=== PATIENT | female | born 1980 | race African-American/Black ===

== ENCOUNTER 2020-08-11 11:15 | Inpatient (IN) | payer OTHER ==
[2020-08-11] MEDS: ELECTROLYTE-148 SOLN 1,000 ML IV SCH (12:20)
--- NOTE | 2020-08-11 12:20 | HP ---
Past Medical History - Primary Care Physician PCP:: Kwame Parra - Admission Chief Complaint: labor pain and leaking fluid History of Present Illness: Patient presented to the hospital following evaluation at [facility]. She was found to be 3-4 cm dilated and incidental rupture of membranes occurred History Source: Patient Limitations to Obtaining History: No Limitations - Past Medical History LUMP ROLLER: No: Alzheimer's, CVA, Dementia, Migraine, Multiple Sclerosis, Peripheral Neuropathy, Parkinson's, Seizure, Syncope, TIA, Vertigo, Other Cardiovascular: No: AFIB, Aneurysm, Aortic Insufficiency, Aortic Stenosis, CAD, CHF, Deep Vein Thrombosis, HTN, Hyperlipdemia, MD, Mitral Insufficiency, Mitral Stenosis, Murmur, Pulmonary Hypertension, Other Pulmonary: No: Asthma, Bronchitis, Cancer, COPD, O2 Dependent, Pneumonia, Previously Intubated, Pulmonary Embolus, Pulmonary Fibrosis, Sleep Apnea, Other Gastrointestinal: No: Ascites, Cancer, Constipation, Crohn's Disease, Diverticulitis, Diverticulosis, Esophageal Varices, Gastritis, GERD, GI Bleed, Hemorrhoids, Hiatal Hernia, Inflamatory Bowel Disease, Irritable Bowel Disease, Pancreatitis, Peptic Ulcer Disease, Ulcerative Colitis, Other Hepatobiliary: No: Cirrhosis, Cholelithiasis, Cholecystitis, Choledoch olithiasis, Hepatitis A, Hepatitis B, Hepatitis C, Other Renal/: No: Renal Failure, Renal Inusuff, BPH, Cancer, Hematuria, Hemodialysis, Neurogenic Bladder, Renal Calculi, UTI, Other Reproductive: No: Ectopic , Endometriosis, Fibroids, PID, Polycystic Ovary Syndrome, Postmenopausal, Other Heme/Onc: No: Anemia, B12 Deficiency, Bleeding Disorder, Cancer, Current Chemotherapy, Current Radiation Therapy, Hemochromatosis, Hypercoaguable State, Myeloproliferative Synd, Sickle Cell Disease, Sickle Cell Trait, Thromb ocytopenia, Other Infectious Disease: No: AIDS, C-Diff, Herpes Zoster, HIV, MRSA, STD's, Tuberculosis, VREF, Other Psych: No: Addictions, Anxiety, Bipolar, Depression, Panic, Psychosis, Schizophrenia, Other Musculoskeletal: No: Bursitis, Chronic low back pain, Hemiparesis, Hemiplegia, Osteoarthritis, Paraplegia, Other Rheumatology: No: Fibromyalgia, Gout, Lupus, Rheumatoid Arthritis, Sarcoidosis, Vasculitis, Other ENT: No: Allergic Rhinitis, Sinusitis, Other Endocrine: No: Humberto's Disease, Kinards's Disease, Diabetes Insipidus, Diabetes Mellitus, Hyperparathyroidism, Hyperthyroidism, Hypothyroidism, Osteopenia, SIADH, Other Dermatology: No: Basal Cell, Cellulitis, Eczema, Melanoma, Psoriasis, Squamous Cell, Other - Past Surgical History Past Surgical History: Yes: None Hx Myomectomy: No Hx Transabdominal Cerclage: No - Smoking History Smoking history: Never smoked Have you smoked in the past 12 months: No - Alcohol/Substance Use Hx Alcohol Use: No History of Substance Use: reports: None - Social History History of Recent Travel: No Home Medications - Allergies Allergies/Adverse Reactions: Allergies Allergy/AdvReac Type Severity Reaction Status Date / Time No Known Allergies Allergy Verified 08/10/20 12:54 - Home Medications Home Medications: Ambulatory Orders Vitamins (Sjr) - 1 tab PO DAILY 08/10/20 Family Medical History Family History: Unremarkable Review of Systems Findings/Remarks: labor pain has improved slightly since she was transferred from [facility]. She continuous to feel leaking of fluid per vagina - Review of Systems Constitutional: reports: No Symptoms Eyes: reports: No Symptoms HENT: reports: No Symptoms Neck: reports: No Symptoms Cardiovascular: reports: No Symptoms Respiratory: reports: No Symptoms Gastrointestinal: reports: No Symptoms Genitourinary: reports: No Symptoms Breasts: reports: No Symptoms Reported Musculoskeletal: reports: No Symptoms Integumentary: reports: No Symptoms Neurological: reports: No Symptoms Endocrine: reports: No Symptoms Hematology/Lymphatic: reports: No Symptoms Psychiatric: reports: No Symptoms Physical Exam - Maternity Vital Signs: WNL as reported by nursing Constitutional: Yes: No Distress Eyes: Yes: WNL HENT: Yes: Atraumatic Neck: Yes: Supple Cardiovascular: Yes: Regular Rate and Rhythm Lungs: Other Breast(s): Yes: Other - Abdominal Exam/OB Number of Fetuses: Single Presentation: Vertex Contractions: Yes Regularity: Irregular Intensity: Mild/Mod Monitor Mode: External Heart Rate (range): 140 Category: I (moderate variability with episodic variables) Accelerations: None Decelerations: Variable - Vaginal Exam/OB Vaginal Bleeding: No Speculum Exam: No (grossly ruptured with mild blood) Dilatation (cm): 4 Effacement (%): 80 Amniotic Membrane Status: Ruptured Amniotic Fluid: Yes: Blood Stained (light) Presentation: Vertex/Position Station: -3 - Physical Exam Musculoskeletal: Yes: WNL Extremities: Yes: WNL Edema: Yes Edema: LLE: Trace, RLE: Trace Integumentary: Yes: WNL Deep Tendon Reflex Grade: Normal +2 ...Motor Strength: WNL Psychiatric: Yes: Alert, Oriented Imaging - Results Ultrasound: Report Reviewed Assessment/Plan 39 y/o @ 38.5wks, SROM in early labor, reassuring status, stable maternal condition. Patient desires no pain control at this time. She was counseled regarding admission to L&D and informed consent obtained. -Expectant management -Consider pitocin augmentation as required
[2020-08-11 12:27] LABS: BASO % 0.2 % (0-2.0); EOS % 0.1 % (0-4.5); HEMATOCRIT 35.7 % (32.4-45.2); HEMOGLOBIN 11.5 GM/dL (10.7-15.3); LYMPH % 11.1 % (8-40); MCH 27.4 pg (25.7-33.7); MCHC 32.3 g/dl (32.0-36.0); MEAN CELL VOLUME 84.9 fl (80-96); MEAN PLT VOLUME 9.4 fl (7.5-11.1); MONO % 6.7 % (3.8-10.2); NEUT % 81.9 % (42.8-82.8); PLATELET COUNT 135 K/MM3 (134-434); RBC 4.21 M/mm3 (3.60-5.2); RDW 14.1 % (11.6-15.6)
[2020-08-11 12:37] LABS: INR 0.97 (0.83-1.09); PROTHROMBIN TIME (PATIENT) 11.9 SEC (9.7-13.0)
[2020-08-11 12:41] LABS: ACTIVATED PTT 29.1 SECONDS (25.2-36.5)
[2020-08-11 12:48] LABS: BLOOD UREA NITROGEN 8.4 mg/dL (7-18); CALCIUM 8.7 mg/dL (8.5-10.1); CREATININE 0.5 mg/dL (0.55-1.3); POTASSIUM 3.8 mmol/L (3.5-5.1)
[2020-08-11] MEDS ORDERED: FENTANYL/BUPIVACAINE/NS/PF - PCEA - 50 ML DISP.SYRIN EP ONE (13:33)
[2020-08-11] MEDS ORDERED: NALOXONE HCL 0.4 MG/ML VIAL IVPUSH PRN (13:46)
[2020-08-11] MEDS ORDERED: BUPIVACAINE HCL/PF 0.25% (2.5MG/ML) 10 ML VIAL ONE (13:48)
[2020-08-11] MEDS: FENTANYL/BUPIVACAINE/NS/PF - PCEA - 50 ML DISP.SYRIN EP SCH (14:10)
[2020-08-11 14:26] VITALS: BMI 31.9
[2020-08-11] MEDS ORDERED: OXYTOCIN 30 UNITS in 0.9% NS 30 UNIT/500 ML INFUS.BAG IVPB ONE (15:23)
[2020-08-11] MEDS: OXYTOCIN 30 UNITS in 0.9% NS 30 UNIT/500 ML INFUS.BAG IVPB SCH (15:25)
--- NOTE | 2020-08-11 16:04 | PN ---
Progress Note, Labor Vaginal Exam #1 Labor Exam Date: 08/11/20 Labor Exam Time: 16:03 Heart Rate (range): Cat I Dilatation: 5 Effacement (%): 90 Amniotic Membrane Status: Ruptured Presentation: Vertex/Position Station: -3 Remarks: Comfortable s/p epidural Pitocin initiated an hour ago, at 2mu Will continue to increase as contractions infrequent Phu Shaw MD
[2020-08-11] MEDS ORDERED: PCA PUMP NR ONE (16:12)
[2020-08-11] MEDS ORDERED: OXYTOCIN 20 UNITS in 0.9% NS 20 UNIT/1,000 ML INFUS.BAG IV ONE ×2 (17:15→23:22)
[2020-08-11] MEDS ORDERED: LIDOCAINE HCL 1% PRESERVATIVE FREE - 30ML VIAL ONE (17:15)
--- NOTE | 2020-08-11 17:52 | PN ---
Progress Note, Labor Vaginal Exam #2 Labor Exam Date: 08/11/20 Labor Exam Time: 17:30 Heart Rate (range): Cat II Dilatation: 10 Effacement (%): 100 Amniotic Membrane Status: Ruptured Presentation: Vertex/Position Station: -2 Remarks: Called to room, difficulty with monitoring and suspected bradycardia SVE now AL/100/-2 Rapid change in ~1 hour, though not significant descent Pt pushed twice with little movement, too numb since epidural FHT heard in 70-90's. FSE applied. Patient rotated to side, oxygen applied, Pit discontinued (had previously been at 4). After reassessment, FHT 130's marked variability initially, then moderate. Having recurrent variable decels to 90's with contractions, which she previously had prior to the deceleration/loss of contact. Closely monitoring. If FHT persist and patient unable to push (effectively), may need PLTCS Phu Shaw MD
[2020-08-11] MEDS ORDERED: METHYLERGONOVINE MALEATE 0.2 MG/1 ML AMP IM PRN (18:32)
[2020-08-11] MEDS ORDERED: BENZOCAINE 20% 57 GM BOTTLE TP PRN (18:32)
[2020-08-11] MEDS ORDERED: WITCH HAZEL 50% (TUCKS) 40 PAD/JAR PAD TP PRN (18:32)
[2020-08-11] MEDS ORDERED: BENZOCAINE 28 GM HEMORRHOIDAL OINTMENT TP PRN (18:32)
[2020-08-11] MEDS ORDERED: BISACODYL 10 MG SUPP.RECT RC PRN (18:32)
--- NOTE | 2020-08-11 18:32 | PN ---
Delivery - Delivery Vaginal Delivery: Spontaneous Type of Anesthesia: Epidural Episiotomy/Laceration: Midline, 1st degree EBL (cc): 250 Delivery, Single - Stages of Labor Placenta: Yes: Spontaneous - Condition of Esl Tutor/Band Booker Present: Yes Infant Gender: Male Position: Left, OA - 1 Minute Total Score: 9 5 Minutes Total Score: 9 - Feeding Plan Initial Plan: Exclusive throughout hospitalization Remarks - Remarks Remarks: of VMI from JORGE LUIS position. Body nuchal delivered through. No meconium. Spontaneous delivery of anterior shoulder and body. Infant placed on mother's abdomen. Cord clamped and cut by provider and FOB. Apgars 9/9. Weight pending to allow skin to skin. Spontaneous delivery of intact placenta with 3VC. Fundus firm. First degree laceration repaired with 2-0 chromic. Hemostasis noted. EBL 250ml. Mother and baby doing well. Sobia Shaw MD
[2020-08-11] MEDS: OXYTOCIN 20 UNITS in 0.9% NS 20 UNIT/1,000 ML INFUS.BAG IV SCH ×2 (19:00→23:30)
[2020-08-11] MEDS ORDERED: IBUPROFEN 600 MG TABLET (FP) PO ONE (20:29)
[2020-08-11] MEDS: ACETAMINOPHEN 325 MG TABLET (FP) PO PRN (20:30)
[2020-08-11] MEDS ORDERED: ACETAMINOPHEN 325 MG TABLET (FP) ONE (20:30)
[2020-08-11] MEDS: IBUPROFEN 600 MG TABLET (FP) PO PRN (20:30)
[2020-08-12] MEDS ORDERED: ACETAMINOPHEN 325 MG TABLET (FP) ONE (06:19)
[2020-08-12] MEDS ORDERED: IBUPROFEN 600 MG TABLET (FP) PO ONE (06:19)
[2020-08-12] MEDS: ACETAMINOPHEN 325 MG TABLET (FP) PO PRN (06:30)
[2020-08-12] MEDS: IBUPROFEN 600 MG TABLET (FP) PO PRN (06:30)
--- NOTE | 2020-08-12 07:52 | PN ---
Post Progress Note Type of Delivery: Vital Signs: Vital Signs Temperature 98.5 F 08/12/20 06:00 Pulse Rate 73 08/12/20 06:00 Respiratory Rate 20 08/12/20 06:00 Blood Pressure 113/71 08/12/20 06:00 O2 Sat by Pulse Oximetry (%) 100 08/11/20 20:30 Uterus: Yes: Fundus below umbilicus Incision: Yes: Dressing dry and intact Abdomen/GI: Yes: Abdomen soft Lochia: Yes: Rubra Lochia, amount: Small Extremities: Yes: Calves non-tender Perineum: Yes: Laceration Activity: Ambulating - Labs Labs: CBC WBC 11.0 K/mm3 (4.0-10.0) H 08/11/20 12:12 RBC 4.21 M/mm3 (3.60-5.2) 08/11/20 12:12 Hgb 11.5 GM/dL (10.7-15.3) 08/11/20 12:12 Hct 35.7 % (32.4-45.2) D 08/11/20 12:12 MCV 84.9 fl (80-96) 08/11/20 12:12 MCH 27.4 pg (25.7-33.7) 08/11/20 12:12 MCHC 32.3 g/dl (32.0-36.0) 08/11/20 12:12 RDW 14.1 % (11.6-15.6) 08/11/20 12:12 Plt Count 135 K/MM3 (134-434) 08/11/20 12:12 MPV 9.4 fl (7.5-11.1) 08/11/20 12:12 Absolute Neuts (auto) 9.0 K/mm3 (1.5-8.0) H 08/11/20 12:12 Neutrophils % 81.9 % (42.8-82.8) D 08/11/20 12:12 Lymphocytes % 11.1 % (8-40) D 08/11/20 12:12 Monocytes % 6.7 % (3.8-10.2) D 08/11/20 12:12 Eosinophils % 0.1 % (0-4.5) 08/11/20 12:12 Basophils % 0.2 % (0-2.0) 08/11/20 12:12 Nucleated RBC % 0 % (0-0) 08/11/20 12:12 Assessment/Plan 39yo s/p , PPD#1 Routine PP care PO pain control F/U AM labs D/C to home PPD#2 Phu Shaw MD
[2020-08-12] MEDS ORDERED: OXYTOCIN 20 UNITS in 0.9% NS 20 UNIT/1,000 ML INFUS.BAG IV ONE (07:56)
[2020-08-12 08:49] LABS: BASO % 0.4 % (0-2.0); EOS % 0.3 % (0-4.5); HEMATOCRIT 30.5 % (32.4-45.2); HEMOGLOBIN 9.8 GM/dL (10.7-15.3); LYMPH % 14.8 % (8-40); MCH 27.3 pg (25.7-33.7); MCHC 32.2 g/dl (32.0-36.0); MEAN CELL VOLUME 84.7 fl (80-96); MEAN PLT VOLUME 10.1 fl (7.5-11.1); MONO % 8.9 % (3.8-10.2); NEUT % 75.6 % (42.8-82.8); PLATELET COUNT 115 K/MM3 (134-434); RBC 3.61 M/mm3 (3.60-5.2); RDW 14.2 % (11.6-15.6); WHITE BLOOD COUNT 12.1 K/mm3 (4.0-10.0)
[2020-08-12] MEDS: PRENATAL VITAMINS W/ FOLIC ACID TABLET (FP) PO SCH (10:30)
[2020-08-12] MEDS ORDERED: PRENATAL VITAMINS W/ FOLIC ACID TABLET (FP) PO ONE (10:52)
[2020-08-12] MEDS: ELECTROLYTE-148 SOLN 1,000 ML IV SCH (12:35)
[2020-08-12] MEDS ORDERED: SENNOSIDES/DOCUSATE COMBO (SENNA PLUS) TABLET (UD) PO PRN (22:00)
[2020-08-12] MEDS: OXYTOCIN 30 UNITS in 0.9% NS 30 UNIT/500 ML INFUS.BAG IVPB SCH (23:08)
[2020-08-12] MEDS: OXYTOCIN 20 UNITS in 0.9% NS 20 UNIT/1,000 ML INFUS.BAG IV SCH (23:08)
[2020-08-12] MEDS: FENTANYL/BUPIVACAINE/NS/PF - PCEA - 50 ML DISP.SYRIN EP SCH (23:09)
--- NOTE | 2020-08-13 07:12 | DS ---
Physical Exam-HOT STONE SETTER Vital Signs: Vital Signs Temperature 98.4 F 08/12/20 23:04 Pulse Rate 88 08/12/20 23:04 Respiratory Rate 18 08/12/20 23:04 Blood Pressure 112/74 08/12/20 23:04 O2 Sat by Pulse Oximetry (%) 97 08/12/20 23:04 Constitutional: Yes: Well Nourished, No Distress, Calm Eyes: Yes: WNL, Conjunctiva Clear, EOM Intact HENT: Yes: WNL, Atraumatic, Normocephalic Neck: Yes: WNL, Supple, Trachea Midline Cardiovascular: Yes: WNL, Regular Rate and Rhythm Respiratory: Yes: WNL, Regular, CTA Bilaterally Gastrointestinal: Yes: WNL ...Rectal Exam: Yes: WNL Renal/: Yes: WNL ....Post : Yes: Uterus firm, Uterus non-tender, Slight lochia rubra Breast(s): Yes: WNL Musculoskeletal: Yes: WNL Extremities: Yes: WNL Edema: No Integumentary: Yes: WNL Neurological: Yes: WNL, Alert, Oriented ...Motor Strength: WNL Psychiatric: Yes: WNL, Alert, Oriented Labs: CBC, BMP 08/12/20 07:25 08/11/20 12:12 Delivery - Delivery Vaginal Delivery: Spontaneous Type of Anesthesia: Epidural Episiotomy/Laceration: Midline, 1st degree EBL (cc): 250 Delivery, Single - Stages of Labor Date 1st Stage Initiatied: 08/11/20 Time 1st Stage Initiated: 10:00 Date 2nd Stage Initiated: 08/11/20 Time 2nd Stage Initiated: 18:00 Date of Delivery: 08/11/20 Time of Delivery: 18:18 Time Placenta Delivered: 18:25 Placenta: Yes: Spontaneous - Condition of Infant [employer] Sourcing Consultant/School Examiner Present: Yes Name: Sanjuana Alexander Gender: Male Weight: 7 lb 7 oz Position: Left, OA Total Hours ROM (Hrs/Mins): 7Hrs/25Mins - 1 Minute Total Score: 9 5 Minutes Total Score: 9 - Feeding Plan Initial Plan: Exclusive throughout hospitalization Discharge Summary Problems reviewed: Yes Reason For Visit: LABOR ADMISSION Procedures: Principal: Hospital Course: no complication Plan of Treatment: follow up [facility] 1 week Condition: Stable - Instructions Diet, Activity, Other Instructions: Regular Diet Follow up in 4 weeks for your visit Referrals: Sobia Shaw MD [Staff Physician] - Disposition: HOME - Home Medications Comprehensive Discharge Medication List: Ambulatory Orders Vitamins (Sjr) - 1 tab PO DAILY 08/10/20 Breast Pump 1 each MC 5XD 30 Days #1 each 08/11/20 Ferrous Sulfate [Iron] 1 tab PO DAILY 08/11/20 Ibuprofen 600 mg PO Q6H PRN #30 tablet 08/11/20
[2020-08-13] MEDS: IBUPROFEN 600 MG TABLET (FP) PO PRN (08:19)
[2020-08-13] MEDS: ACETAMINOPHEN 325 MG TABLET (FP) PO PRN (08:20)
[2020-08-13] MEDS: PRENATAL VITAMINS W/ FOLIC ACID TABLET (FP) PO SCH (09:17)
[2020-08-13 14:55] VITALS: BP 118/76; PULSE 82; TEMP 98
== END 2020-08-13 14:04 | disposition home or self-care (01) | DRG 807 ==
LOC: JLDR 11:15 → J3W 08-12 15:09
PROVIDERS: ADMIT Student in an Organized Health Care Education/Training Program; ATTEND Student in an Organized Health Care Education/Training Program
PROC: 10E0XZZ Delivery of Products of Conception, External Approach (ICD-10-PCS; principal; 2020-08-11)
PROC: 0W8NXZZ Division of Female Perineum, External Approach (ICD-10-PCS; 2020-08-11)
PROC: 0HQ9XZZ Repair Perineum Skin, External Approach (ICD-10-PCS; 2020-08-11)
PROC: 10H073Z Insertion of Monitoring Electrode into Products of Conception, Via Natural or Artificial Opening (ICD-10-PCS; 2020-08-11)
PROC: 4A1H7CZ Monitoring of Products of Conception, Cardiac Rate, Via Natural or Artificial Opening (ICD-10-PCS; 2020-08-11)
DX: O70.0 First degree perineal laceration during delivery (principal); Z37.0 Single live birth; O76 Abnormality in fetal heart rate and rhythm complicating labor and delivery; O42.013 Preterm premature rupture of membranes, onset of labor within 24 hours of rupture, third trimester; O69.89X0 Labor and delivery complicated by other cord complications, not applicable or unspecified; Z3A.38 38 weeks gestation of pregnancy
CPT/HCPCS: 36415; 59409; 80048; 85025; 85610; 85730; 86780; 86850; 86900; 86901; C9803; U0003

== ENCOUNTER 2023-08-24 10:38 | Emergency (ER) | payer OTHER ==
[2023-08-24 10:53] VITALS: BP 142/98; PULSE 75; RESP 16; TEMP 98.3; BMI 29.6
== END 2023-08-24 12:04 | disposition home or self-care (01) ==
LOC: JER 10:38 → JERFT 10:38
DX: S39.012A Strain of muscle, fascia and tendon of lower back, initial encounter (principal); M54.50 Low back pain, unspecified; X50.1XXA Overexertion from prolonged static or awkward postures, initial encounter; Y99.0 Civilian activity done for income or pay
CPT/HCPCS: 99283-25